=== PATIENT | female | born 1995 | race Asian ===

== ENCOUNTER → 2018-12-13 | Outpatient (CLI) | payer OTHER | END | disposition home or self-care (01) | LOC: RAD 10:32 | PROVIDERS: ATTEND Family Medicine | DX: M94.0 Chondrocostal junction syndrome [Tietze] (principal) | CPT/HCPCS: 71046 ==

== ENCOUNTER → 2019-01-10 | Outpatient (CLI) | payer OTHER ==
[~2019-01-10] MED LIST: OMNIPAQUE 350 MG/ML, 100ML BOTTLE ONE
== END | disposition home or self-care (01) ==
LOC: CFH 10:17
PROVIDERS: ATTEND Family Medicine
DX: R07.9 Chest pain, unspecified (principal)
CPT/HCPCS: 71275; Q9967